=== PATIENT | female | born 1960 | race African-American/Black ===

== ENCOUNTER 2017-07-18 09:26 | Inpatient (IN) ==
[2017-07-12 13:09] LABS: MANUAL DIFF NEEDED? NO
[2017-07-12 13:33] LABS: BASO% 0.5 % (0.0-0.8); EOS# 0.17 X1000 (0.0-0.7); HEMATOCRIT 39.1 % (37.0-47.0); HEMOGLOBIN 12.2 g/dL (12.0-16.0); LYMPH% 33.3 % (20.5-51.1); MCH 26.1 PG (27-31); MCHC 31.2 g/dL (33-37); MCV 83.7 FL (81-99); MONO# 0.36 X1000 (0.11-0.59); MONO% 6.3 % (1.7-9.3); MPV 11.8 FL (7.4-10.4); NEUT% 56.9 % (42.2-75.2); PLT 242 X1000 (130-400); RBC 4.67 XMIL (4.2-5.4)
[2017-07-12 13:44] LABS: CALCIUM 9.1 mg/dL (8.8-10.2); POTASSIUM 3.9 mmol/L (3.5-5.1)
--- NOTE | 2017-07-13 06:22 | EKG Report ---
Test Performed on : 07/12/2017 11:56:29 AM Test Reason : pat Blood Pressure : / mmHG Vent. Rate : 067 BPM Atrial Rate : 067 BPM P-R Int : 160 ms QRS Dur : 080 ms QT Int : 444 ms P-R-T Axes : 053 -07 013 degrees QTc Int : 469 ms Normal sinus rhythm. QRS axis leftward inferiorly - no comparison Normal ECG No previous ECGs available Confirmed by Vasile Pham DO ([id number]) on 07/16/2017 4:12:57 PM
[~2017-07-18 09:26] MED LIST: DIPRIVAN 1% ONE; SODIUM CHLORIDE 0.9% 10 ML ONE; XYLOCAINE-MPF 2% ONE
[2017-07-18] MEDS ORDERED: FENTANYL ONE (09:36)
[2017-07-18] MEDS ORDERED: LR 1,000 ML ONE ×4 (09:45→14:18)
[2017-07-18] MEDS ORDERED: VALIUM ONE (10:09)
[2017-07-18] MEDS ORDERED: MARCAINE 0.25% PF ONE ×2 (11:32→13:19)
[2017-07-18] MEDS ORDERED: XYLOCAINE 1%/EPI 1:100,000 ONE (11:32)
[2017-07-18] MEDS ORDERED: QUELICIN (DOSE) ONE (12:07)
[2017-07-18] MEDS ORDERED: MEFOXIN 2 GM/NS 2 GM/50 ML IVPB ONE (12:08)
[2017-07-18] MEDS ORDERED: TORADOL ONE (12:42)
[2017-07-18] MEDS ORDERED: ZOFRAN ONE (12:42)
[2017-07-18 13:08] LABS: URINE MICRO REVIEW NEEDED? NO; URINE SOURCE CATH
[2017-07-18 13:15] LABS: BILIRUBIN URINE NEGATIVE (NEGATIVE); BLOOD URINE NEGATIVE (NEGATIVE); COLOR STRAW; GLUCOSE URINE NEGATIVE (NEGATIVE); LEUKOCYTES URINE NEGATIVE (NEGATIVE); NITRITE URINE NEGATIVE (NEGATIVE); PROTEIN URINE NEGATIVE (NEGATIVE); SP GRAVITY URINE 1.006; TURBIDITY URINE CLEAR (CLEAR); UROBILINOGEN URINE NORMAL (NORMAL)
[2017-07-18] MEDS ORDERED: ROBINUL ONE (13:15)
[2017-07-18] MEDS ORDERED: NEOSTIGMINE ONE (13:15)
[2017-07-18 13:18] LABS: UR EPITHELIAL CELLS <10 /HPF (<10); URINE BACTERIA NEGATIVE /HPF; URINE RBC <10 /HPF (<10); URINE WBC <10 /HPF (<10)
[2017-07-18] MEDS ORDERED: EXPAREL 1.3% ONE (13:19)
[2017-07-18] MEDS ORDERED: SODIUM CHLORIDE 0.9% 10 ML ONE (13:19)
--- NOTE | 2017-07-18 14:05 | OPERATIVE NOTE ---
PROCEDURE DATE: 07/18/2017 PREOPERATIVE DIAGNOSIS: Gastric mass measuring 2.5 cm. POSTOP DIAGNOSIS: Gastric mass measuring 2.5 cm. PROCEDURE: Laparoscopic converted to open partial gastrectomy. SURGEON: Henry Ruiz MD. TANK TRUCK LOADER: Dr. Jerilyn Paige. He assisted in the entirety of the case. ANESTHESIA: General endotracheal. INTRAOPERATIVE FINDINGS: 2.5 cm mass that was mobile. COMPLICATION: None. ESTIMATED BLOOD LOSS: 20 mL SPECIMEN REMOVED: Partial aspect of the stomach. BRIEF HISTORY: The patient is a 56-year-old, female, who initially presented for an immediate for an esophagogastroduodenoscopy. She was found to have a gastric mass which was biopsied. She had a CT scan that it made it look like a lipoma but were unable to define it further. Given this, and the concern that potentially might represent cancer we elected to resect it. The risks benefits alternatives for the procedure were discussed. All questions answered. DESCRIPTION OF PROCEDURE: After informed consent was obtained, the patient brought to the operative theatre, transferred to operating table, placed in supine position. General endotracheal anesthesia was then performed without complication. A formal time- out was then performed confirming patient, date, procedure. All were agreement. At that time, attention to the abdomen. A supraumbilical incision was made through which using Optiview technique. We then able to insert 11 mm trocar, connected to insufflation. Pneumoperitoneum was achieved. We placed another 12 mm trocar. The 5 mm trocar on the patient's left side. We initially elevated the stomach. We saw the area that Dr. Lomas had previously tattooed, and it was a area. We used the graspers to try to palpate the lesion given the fact that the Michelle ink had spread further than the size of the mass was likely to represent. We tried on several occasions to try to grasp the lesion but it was too mobile. Given this and the concern that using a stapler across the area laparoscopically might result in too much of the stomach being resected. We elected to convert to open removed all trocars, disconnected insufflation. Pneumoperitoneum was released. I made a standard midline incision through the abdomen into the fascia into the peritoneum we would to eviscerate the stomach. At that point, we were able to identify and palpate the mass. Again, it was consistent with a size that we previously thought. We placed stay sutures on either side of the mass. We then took down the omentum off the greater curvature to free up an area approximately 8 cm in length. We elevated this mass. We used a TRIP stapler to essentially do a partial gastrectomy incorporating the lesion. We did this in 2 firings. We then examined the lumen. It was not narrowed. It was patent. We over sewed the staple line with 3-0 silk with good results. All bleeding was stopped with electrocautery and suture ligations. To prevent herniation of defect created by removing part of the stomach, we did pexy the omentum up to the stomach slightly. We then closed the abdomen in layers using 0 chromic for the peritoneum, running loop PDS for the fascia, and Monocryl for the skin. The patient tolerated procedure well and remained in the operating room for TAP block to be placed by Anesthesia. Postoperatively, we will monitor and admit her to the floor and have her on noncarbonated clears. cc: Henry Ruiz MD [facility]
[2017-07-18] MEDS: MORPHINE ONE ×2 (14:40→14:45)
[2017-07-18] MEDS ORDERED: ZOFRAN PO PRN (15:48)
[2017-07-18] MEDS ORDERED: ZOFRAN IV PRN (16:44)
[2017-07-18] MEDS ORDERED: INSULIN PEN NEEDLES ONE (16:49)
[2017-07-18] MEDS ORDERED: OXYCONTIN PO SCH ×2 (17:00→18:35)
[2017-07-18] MEDS: HEPARIN SUBQ SCH (17:43)
[2017-07-18] MEDS: NEURONTIN PO SCH (17:44)
[2017-07-18] MEDS: LR 1,000 ML IV SCH (17:48)
[2017-07-18] MEDS: NORCO-10 PO PRN (18:23)
[2017-07-18] MEDS: MORPHINE IV PRN (19:45)
[2017-07-18] MEDS: LIORESAL PO SCH (21:10)
[2017-07-18] MEDS: DIABETA PO SCH (21:10)
[2017-07-18] MEDS: DESYREL PO SCH (21:10)
[2017-07-18] MEDS: GLUCOPHAGE PO SCH (21:11)
[2017-07-18] MEDS: HUMULIN 70/30 SUBQ SCH (21:12)
[2017-07-19] MEDS: HEPARIN SUBQ SCH ×3 (00:17→16:59)
[2017-07-19] MEDS: LR 1,000 ML IV SCH ×3 (00:18→16:59)
[2017-07-19] MEDS: NORCO-10 PO PRN ×2 (00:20→04:22)
--- NOTE | 2017-07-19 06:36 | PROGRESS NOTE ---
DATE: 07/19/2017 SUBJECTIVE: The patient is doing okay. No major issues. OBJECTIVE: Vital Signs: The patient is currently afebrile. Her vital signs are stable. General: No acute distress. Cardiovascular: Regular rate and rhythm. Lungs: Grossly clear. Abdomen: Soft, appropriately tender. Dressing in place. ASSESSMENT AND PLAN: A 56-year-old female, status post partial gastric resection for a gastric mass. 1. Postoperative state, at this time she is doing okay. We will keep on her on a noncarbonated clear liquid diet for now until she starts to have return of bowel function. Once she does, we can advance her diet. I still do not want her to drink too much and get gastric distention. We will follow her closely. 2. Multiple medical comorbidities. Currently, she is on all of her home medications. If anything changes, we may need to consider getting the hospitalist involved. cc: Henry Ruiz MD
[2017-07-19] MEDS ORDERED: LEXAPRO PO SCH (09:00)
[2017-07-19] MEDS ORDERED: CYMBALTA PO SCH (09:00)
[2017-07-19] MEDS: HUMULIN 70/30 SUBQ SCH ×2 (09:09→21:48)
[2017-07-19] MEDS: LEXAPRO PO SCH (10:01)
[2017-07-19] MEDS: SYNTHROID PO SCH (10:01)
[2017-07-19] MEDS: NEURONTIN PO SCH ×3 (10:01→21:49)
[2017-07-19] MEDS: CYMBALTA PO SCH (10:01)
[2017-07-19] MEDS: MOBIC PO SCH (10:02)
[2017-07-19] MEDS: PRILOSEC PO SCH (10:02)
[2017-07-19] MEDS: DIABETA PO SCH ×2 (10:02→21:48)
[2017-07-19] MEDS: GLUCOPHAGE PO SCH ×2 (10:02→21:48)
[2017-07-19] MEDS: MORPHINE IV PRN ×2 (10:03→21:46)
[2017-07-19] MEDS: DESYREL PO SCH (21:47)
[2017-07-19] MEDS: LIPITOR PO SCH (21:47)
[2017-07-19] MEDS: LIORESAL PO SCH (21:47)
[2017-07-20] MEDS: LR 1,000 ML IV SCH ×3 (01:05→21:11)
[2017-07-20] MEDS: HEPARIN SUBQ SCH ×3 (02:22→17:17)
--- NOTE | 2017-07-20 06:44 | PROGRESS NOTE ---
DATE: 07/20/2017 SUBJECTIVE: Patient doing okay. No major issues. She tolerated her liquid diet. OBJECTIVE: Vital Signs: Patient is currently afebrile. Her vital signs are stable. General: No acute distress. Cardiovascular: Regular rate and rhythm. Lungs: Clear. Abdomen: Soft, appropriately tender. Dressing in place. ASSESSMENT AND PLAN: A 56-year-old female, status post partial gastric resection for gastric mass. 1. Postoperative state . At this time, she has had return of bowel function. I will advance her to a full liquid diet. I still do not want her taking too much to cause distention but overall, hopefully she can get out here soon. 2. Multiple medical comorbidities. Currently she is doing well on all of her home medications. We will continue to follow. cc: Henry Ruiz MD
[2017-07-20] MEDS: NORCO-10 PO PRN ×2 (07:00→17:18)
[2017-07-20] MEDS ORDERED: BYDUREON SUBQ SCH (08:00)
[2017-07-20] MEDS: PERIDEX MT SCH ×2 (09:12→21:16)
[2017-07-20] MEDS: CYMBALTA PO SCH (09:13)
[2017-07-20] MEDS: NEURONTIN PO SCH ×3 (09:13→21:12)
[2017-07-20] MEDS: MOBIC PO SCH (09:13)
[2017-07-20] MEDS: GLUCOPHAGE PO SCH ×2 (09:13→21:17)
[2017-07-20] MEDS: SYNTHROID PO SCH (09:13)
[2017-07-20] MEDS: LEXAPRO PO SCH (09:14)
[2017-07-20] MEDS: DIABETA PO SCH ×2 (09:14→21:17)
[2017-07-20] MEDS: PRILOSEC PO SCH (09:14)
[2017-07-20] MEDS: HUMULIN 70/30 SUBQ SCH ×2 (09:14→21:17)
[2017-07-20] MEDS ORDERED: EXENATIDE MICROSPHERES 2 MG SQ SCH (15:48)
[2017-07-20] MEDS: DESYREL PO SCH (21:11)
[2017-07-20] MEDS: LIPITOR PO SCH (21:12)
[2017-07-20] MEDS: LIORESAL PO SCH (21:12)
[2017-07-20] MEDS: MORPHINE IV PRN (21:22)
[2017-07-21] MEDS: HEPARIN SUBQ SCH ×3 (01:24→16:54)
[2017-07-21] MEDS ORDERED: PNEUMOVAX 23 IM ONE (03:14)
[2017-07-21] MEDS: LR 1,000 ML IV SCH ×4 (06:11→19:24)
[2017-07-21] MEDS: GLUCOPHAGE PO SCH ×2 (08:40→21:22)
[2017-07-21] MEDS: PERIDEX MT SCH ×2 (08:40→21:09)
[2017-07-21] MEDS: MOBIC PO SCH (08:40)
[2017-07-21] MEDS: NEURONTIN PO SCH ×3 (08:40→16:54)
[2017-07-21] MEDS: LEXAPRO PO SCH (08:40)
[2017-07-21] MEDS: SYNTHROID PO SCH (08:41)
[2017-07-21] MEDS: CYMBALTA PO SCH (08:41)
[2017-07-21] MEDS: DIABETA PO SCH ×2 (08:41→21:21)
[2017-07-21] MEDS: NORCO-10 PO PRN ×2 (08:42→13:50)
[2017-07-21] MEDS: PRILOSEC PO SCH (08:48)
[2017-07-21] MEDS: HUMULIN 70/30 SUBQ SCH ×2 (09:05→21:21)
--- NOTE | 2017-07-21 09:24 | PROGRESS NOTE ---
DATE: 07/21/2017 SUBJECTIVE: Patient is doing okay. No major issues. She tolerated her full liquid diet. She is having bowel movements. She does report some mild discomfort and a headache. OBJECTIVE: Vital Signs: Patient is currently afebrile. Her vital signs have been stable. General: No acute distress. Cardiovascular: Regular rate and rhythm. Lungs grossly clear. Abdomen soft, appropriately tender. Dressing in place. Incision is healing well. ASSESSMENT AND PLAN: A 56-year-old, -[place] female, status post partial gastric resection for gastric mass. 1. Postoperative state at this time. She has had return of bowel function. I will advance her to a post gastrectomy diet with 6 small meals. Hopefully, she can be discharged later today; if not, hopefully in the morning. She is having some discomfort so will need to monitor. 2. Multiple medical comorbidities. Currently doing well on all of her home medications. We will continue to follow. cc: Henry Ruiz MD
[2017-07-21] MEDS: MORPHINE IV PRN ×2 (11:44→21:09)
[2017-07-21] MEDS: DESYREL PO SCH (21:08)
[2017-07-21] MEDS: LIORESAL PO SCH (21:09)
[2017-07-21] MEDS: LIPITOR PO SCH (21:09)
[2017-07-22] MEDS: NORCO-10 PO PRN ×2 (00:37→10:20)
[2017-07-22] MEDS: HEPARIN SUBQ SCH ×2 (01:49→09:16)
[2017-07-22] MEDS: LR 1,000 ML IV SCH (06:26)
[2017-07-22] MEDS: MORPHINE IV PRN (06:45)
[2017-07-22] MEDS: PRILOSEC PO SCH (09:13)
[2017-07-22] MEDS: CYMBALTA PO SCH (09:14)
[2017-07-22] MEDS: DIABETA PO SCH (09:14)
[2017-07-22] MEDS: PERIDEX MT SCH (09:14)
[2017-07-22] MEDS: NEURONTIN PO SCH (09:14)
[2017-07-22] MEDS: GLUCOPHAGE PO SCH (09:14)
[2017-07-22] MEDS: LEXAPRO PO SCH (09:14)
[2017-07-22] MEDS: MOBIC PO SCH (09:14)
[2017-07-22] MEDS: SYNTHROID PO SCH (09:15)
[2017-07-22] MEDS: HUMULIN 70/30 SUBQ SCH (09:15)
--- NOTE | 2017-07-22 17:27 | DISCHARGE SUMMARY ---
ADMISSION DATE: 07/18/2017 DISCHARGE DATE: 07/22/2017 ADMITTING DIAGNOSIS: Gastric mass. 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 PRINCIPAL PROCEDURE: Wedge resection, stomach, of gastric mass on 07/18/[address] Ruiz. DISCHARGE DISABILITY: Full. DISCHARGE MEDICATIONS: She is to return to her home medications which include chronic pain control for fibromyalgia and osteoarthritis. DISCHARGE DIET: Regular. DISCHARGE DISPOSITION: She will return to Dr. Ruiz in our outpatient office in 2 weeks postoperatively. HOSPITAL COURSE: Ms. Ami Shankar is a 56-year-old black female who presented on the day of surgery, 07/18/2017, for resection of a gastric mass along the greater curvature of the stomach. Initially the laparoscope was used but we converted to open using an open midline incision to wedge using the stapler this gastric mass off the greater curvature of the stomach. The suture line was reinforced with silk Lembert stitches per Dr. Ruiz. After surgery she went to the recovery room, then the floor. We feel that her postoperative convalescence has been normal. At discharge she was tolerating a regular diet. Her heart rate was 84. Blood pressure 148/79. She was afebrile on no antibiotics. She was voiding without difficulty. She was ambulating in the halls without shortness of breath. Her upper midline incision was closed with subcuticular stitches and the Steri-Strips were removed. I went over discharge instructions with the patient and her . They live near the [facility] and will return to see Dr. Ruiz 2 weeks postoperatively. I gave them no new discharge medications. She knows to contact us with any problems. cc: MD Henry Cruz MD
== END 2017-07-22 10:26 | disposition home or self-care (01) ==
LOC: SURHOLD 09:26 → 4N 14:24
PROVIDERS: ADMIT Surgery; ATTEND Surgery